=== PATIENT | male | born 1945 | race Caucasian/White ===

== ENCOUNTER 2022-04-13 07:47 | Day surgery (SDC) | payer MEDICARE, BC, SELFPAY ==
[2022-04-08 10:30] VITALS: BMI 25.4
--- NOTE | 2022-04-09 09:35 | MHC.SHP ---
Pre-Procedural Eval Section A Date of Service: 04/09/22 The patient is an INPATIENT: No Changes since office visit: No Cold of Flu in the past 2 weeks, No New Medical Problems, No Changes in Medication and No Patient answered all questions The History & Physical has been completed within 30 days and I have reviewed it.: Yes Section B Chief Complaint: Age-related nuclear cataract, left eye Allergies: Allergies Allergy/AdvReac Type Severity Reaction Status Date / Time No Known Allergies Allergy Verified 04/08/22 10:30 Plan Diagnosis/Plan: Unchanged I have reviewed the history and physical and performed a pertinent physical examination on my patient. No changes have occurred unless specified. Time Spent With Patient Time: Total time managing care of this patient today ____ minutes.
[2022-04-13 08:45] VITALS: BP 144/87; PULSE 68; RESP 16; TEMP 36.3; O2SAT 97
[2022-04-13 08:48] VITALS: BP 144/87; PULSE 68; RESP 16; TEMP 36.3; O2SAT 97
[2022-04-13] MEDS: Tetracaine HCl/PF 0.5% Oph Sol 4 ML DROPS 1 DROP EYE-LEFT (08:53)
[2022-04-13] MEDS: Cyclopentolate 1 % Ophth Sol 2 ML DRPBTL 1 DROP EYE-LEFT ×3 (08:54→09:07)
[2022-04-13] MEDS: Tropicamide 1 % Ophth Sol 3 ML BTL 1 DROP EYE-LEFT ×3 (08:55→09:08)
[2022-04-13] MEDS: Ketorolac Tromethamine 0.5% Op 5 ML DROPS 1 DROP EYE-LEFT ×3 (08:57→09:09)
--- NOTE | 2022-04-13 08:58 | P.CONAN_ITS ---
[facility] Past Medical History Medical History Cataract Elevated cholesterol History of cardioversion History of skin cancer HTN (hypertension) Hx of subdural hematoma PAF (paroxysmal atrial fibrillation) Functional capacity: independent ambulation Family History Family history of problems with anesthesia: No Surgical History Surgical History Hx of colonoscopy Hx of melanoma excision History of Problems with Anesthesia: No Social History Social History Are you a primary palliative care coordinator to a significant other at home: No Do you presently have visiting nurse or other home services: No Patient Tobacco Use Status: Former Tobacco user Quit Date: 1977 Tobacco use type: Cigar Use of substances other than those prescribed or required for medical reasons: No Have you been hit, kicked, punched, or otherwise hurt by someone within the past year? If so, by whom?: No Are you DNR?: No Advance Directives: No Advance Directives Information Provided: Yes Advance Directives on File: No Nutrition Risks: Surgical patient >75years Poor oral hygiene: No Meds Allergies Allergy/AdvReac Type Severity Reaction Status Date / Time No Known Allergies Allergy Verified 04/13/22 08:48 Active Medications: Current Medications Lactated Ringer's (Lr) 500 mls @ 50 mls/hr IV .Q10H JENN Stop: 04/13/22 18:44 Povidone Iodine (Povidone Iodine 5 % Ophth Soln 30 Ml Bottle) 1 appl EYE-LEFT PREOP PRN PRN Reason: Pre-Op Surgical Implant Prophy Home Medications Medication Instructions Recorded Confirmed Last Taken Type apixaban 5 mg tablet (Eliquis) 1 tab PO BID 04/08/22 04/08/22 Unknown History atorvastatin 40 mg tablet 1 tab PO DAILY 04/08/22 04/08/22 Unknown History diltiazem HCl 180 mg 1 cap PO DAILY 04/08/22 04/13/22 04/13/22 05:00 History capsule,extended release 24 hr lisinopril 40 mg tablet 1 tab PO DAILY 04/08/22 04/08/22 Unknown History Exam Exam Date and Time: April 13, 2022 0858 Height,Weight and Vital Signs: Height 5 ft 8.75 in Weight 77.791 kg Last Vital Signs Temp 97.4 F 04/13/22 08:48 Pulse 68 04/13/22 08:48 Resp 16 04/13/22 08:48 BP 144/87 H 04/13/22 08:48 Pulse Ox 97 04/13/22 08:48 O2 Del Method 04/13/22 08:48 Airway Mallampati Class: II TM Dist: >3cm Neck ROM: Full Heart: irreg. Lungs: CTA Assessment and Plan Final Anesthetic Review Family History of Problems with Anesthesia: No History of Problems with Anesthesia: No ASA Class: III Final Preanesthetic Review: Meds/Allgs Chart Reviewed, Consent Obtained/Reviewed and Anes Risks/Benef Reviewed Patient Risk: Low Procedure Risk: Low Anesthetic Plan Anesthetic Plan: MAC: Disposition: Standard PACU
[2022-04-13] MEDS: Phenylephrine HCL 2.5% Oph SoL 2 ML BOTTLE 1 DROP EYE-LEFT ×3 (08:59→09:10)
[2022-04-13] MEDS: Lactated Ringers 500 ML 50 ML IV (09:00)
--- NOTE | 2022-04-13 10:01 | HO.PNOPHT ---
Ophthalmology Procedure Procedure Date of Service: 04/13/22 Ophthalmology Viscoelastic: Arcenio Felipet Dual Pack Pro Ophthalmology Lenses: TECTAI [id number] (12) Procedure Notes: PREOPERATIVE DIAGNOSIS: Decreased visual acuity left eye secondary to cataract POSTOPERATIVE DIAGNOSIS: Same PROCEDURE: Left cataract extraction with intraocular lens insertion SURGEON: Juan Manuel Alonzo M.D. ANESTHESIA: Topical/MAC ESTIMATED BLOOD LOSS: None COMPLICATIONS: None After obtaining informed consent, the patient was brought to the operation room suite and placed in the supine position. After adequate sedation per anesthesia, topical drops of Tetracaine were given to the left eye. The eye was then prepped and draped in the usual sterile fashion. The operating room microscope was then positioned over the operative eye and a lid speculum placed. A paracentesis was created. Viscoelastic was then instilled into the anterior chamber. A three plane incision was then created temporally, utilizing a 2.85 mm keratome. Capsulotomy forceps were then utilized to create a circular tear capsulotomy. Hydrodissection and hydrodelineation were carried out until adequate mobilization of the nucleus occurred. Phacoemulsification was then utilized to remove the dense central nucleus followed by removal of the cortical material utilizing the automated aspiration irrigation unit. Viscoat elastic was instilled into the posterior capsular bag followed by placement of a posterior chamber intraocular lens without difficulty. The residual Viscoat elastic was then removed utilizing the automated IA machine. The wound was check and found to be watertight. The patient tolerated the procedure well and the lid speculum was removed. Intracameral injection of Vigamox 0.1 mL followed by a subtenon injection of Kenalog-40 0.2 mL were administered. The patient will be seen in the a.m.
[2022-04-13 10:23] VITALS: BP 139/81; PULSE 71; RESP 16; TEMP 36.1; O2SAT 99
--- NOTE | 2022-04-13 12:02 | HO.POSTANES ---
Post Anesthesia Evaluation Post Anesthesia Evaluation Vital Signs: Vital Signs Temp Pulse Resp BP Pulse Ox O2 Del Method 04/13/22 10:23 97 F 71 16 139/81 99 Room Air 04/13/22 08:45 97.4 F 68 16 144/87 H 97 Room Air 04/13/22 08:48 97.4 F 68 16 144/87 H 97 Room Air Anesthesia: Monitored Mental Status: Awake Pain Control: Satisfactory Nausea/Vomiting: None Hydration: Adequate Anesthesia-Related Issues: No Anes. Related Issues
== END 2022-04-13 10:32 | disposition home or self-care (01) ==
PROVIDERS: PCP Internal Medicine; Visit Provider Ophthalmology
PROC: (CPT 66985; principal; 2022-04-13 10:00)
DX: H25.12 Age-related nuclear cataract, left eye (principal); H52.4 Presbyopia; H40.013 Open angle with borderline findings, low risk, bilateral; H04.123 Dry eye syndrome of bilateral lacrimal glands; I10 Essential (primary) hypertension; I48.91 Unspecified atrial fibrillation; E78.00 Pure hypercholesterolemia, unspecified; Z79.01 Long term (current) use of anticoagulants; Z79.899 Other long term (current) drug therapy; Z87.891 Personal history of nicotine dependence; Z85.820 Personal history of malignant melanoma of skin
CPT/HCPCS: 66984; J2250; J3301; V2632

== ENCOUNTER 2022-04-20 09:11 | Day surgery (SDC) | payer MEDICARE, BC, SELFPAY ==
[2022-04-08 10:35] VITALS: BMI 25.4
--- NOTE | 2022-04-16 12:57 | MHC.SHP ---
Pre-Procedural Eval Section A Date of Service: 04/16/22 The patient is an INPATIENT: Yes Changes since office visit: No Cold of Flu in the past 2 weeks, No New Medical Problems, No Changes in Medication and No Patient answered all questions The History & Physical has been completed within 30 days and I have reviewed it.: Yes Section B Chief Complaint: Age-related nuclear cataract, right eye Allergies: Allergies Allergy/AdvReac Type Severity Reaction Status Date / Time No Known Allergies Allergy Verified 04/13/22 08:48 Plan Diagnosis/Plan: Unchanged I have reviewed the history and physical and performed a pertinent physical examination on my patient. No changes have occurred unless specified. Time Spent With Patient Time: Total time managing care of this patient today ____ minutes.
--- NOTE | 2022-04-17 11:43 | P.CONAN_ITS ---
Documented by User: Basilia Quintana NP 04/17/22 11:44 HPI - Anesthesia Eval Consult details Narrative: 77yo M for Right Cataract Extraction IOL Insertion PCP cleared Left eye 04/13/22: [facility] 2 PMF[facility] Past Medical History Medical History Cataract Elevated cholesterol History of cardioversion History of skin cancer HTN (hypertension) Hx of subdural hematoma PAF (paroxysmal atrial fibrillation) Family History Family history of problems with anesthesia: No Surgical History Surgical History Hx of colonoscopy Hx of melanoma excision History of Problems with Anesthesia: No Social History Social History Are you a primary caregiver assisted living to a significant other at home: No Do you presently have visiting nurse or other home services: No Patient Tobacco Use Status: Former Tobacco user Quit Date: 1977 Tobacco use type: Cigar Use of substances other than those prescribed or required for medical reasons: No Have you been hit, kicked, punched, or otherwise hurt by someone within the past year? If so, by whom?: No Are you DNR?: No Advance Directives: No Advance Directives Information Provided: Yes Advance Directives on File: No Recently lost weight without trying: No Nutrition Risks: Surgical patient >75years Poor oral hygiene: No Meds Allergies Allergy/AdvReac Type Severity Reaction Status Date / Time No Known Allergies Allergy Verified 04/13/22 08:48 Home Medications Medication Instructions Recorded Confirmed Last Taken Type apixaban 5 mg tablet (Eliquis) 1 tab PO BID 04/08/22 04/20/22 04/19/22 History atorvastatin 40 mg tablet 1 tab PO DAILY 04/08/22 04/20/22 Unknown History diltiazem HCl 180 mg 1 cap PO DAILY 04/08/22 04/20/22 04/20/22 History capsule,extended release 24 hr lisinopril 40 mg tablet 1 tab PO DAILY 04/08/22 04/20/22 Unknown History Exam Exam Date and Time: April 17, 2022 1143 Height,Weight and Vital Signs: Height 5 ft 8.75 in Weight 77.791 kg Assessment and Plan Assessment Anesthesia Assessment: PAT Visit Final Anesthetic Review Family History of Problems with Anesthesia: No History of Problems with Anesthesia: No Documented by User: Maine Covarrubias MD 04/20/22 10:41 PMFSH Past Medical History Medical History Cataract Elevated cholesterol History of cardioversion History of skin cancer HTN (hypertension) Hx of subdural hematoma PAF (paroxysmal atrial fibrillation) Surgical History Surgical History Hx of colonoscopy Hx of melanoma excision Social History Social History Are you a primary caregiver assisted living to a significant other at home: No Do you presently have visiting nurse or other home services: No Patient Tobacco Use Status: Former Tobacco user Quit Date: 1977 Tobacco use type: Cigar Use of substances other than those prescribed or required for medical reasons: No Have you been hit, kicked, punched, or otherwise hurt by someone within the past year? If so, by whom?: No Are you DNR?: No Advance Directives: No Advance Directives Information Provided: Yes Advance Directives on File: No Recently lost weight without trying: No Nutrition Risks: Surgical patient >75years Poor oral hygiene: No Meds Allergies Allergy/AdvReac Type Severity Reaction Status Date / Time No Known Allergies Allergy Verified 04/13/22 08:48 Home Medications Medication Instructions Recorded Confirmed Last Taken Type apixaban 5 mg tablet (Eliquis) 1 tab PO BID 04/08/22 04/20/22 04/19/22 History atorvastatin 40 mg tablet 1 tab PO DAILY 04/08/22 04/20/22 Unknown History diltiazem HCl 180 mg 1 cap PO DAILY 04/08/22 04/20/22 04/20/22 History capsule,extended release 24 hr lisinopril 40 mg tablet 1 tab PO DAILY 04/08/22 04/20/22 Unknown History Exam Height,Weight and Vital Signs: Height 5 ft 8.75 in Weight 77.791 kg Vital Signs Temp Pulse Resp Pulse Ox O2 Del Method 04/20/22 09:29 97.8 F 91 18 97 Room Air Airway Mallampati Class: II TM Dist: >3cm Neck ROM: Full Loose/Missing/Broken Teeth: Yes (Missing teeth back. Denies broken or loose teeth) Heart: Irregularly irregular Lungs: CTAB Assessment and Plan Assessment Anesthesia Assessment: Anesthesia Plan Discussed and Chart Reviewed Final Anesthetic Review NPO: Yes ASA Class: III Final Preanesthetic Review: No Changes in Pt Med Stat, Meds/Allgs Chart Reviewed, Consent Obtained/Reviewed and Anes Risks/Benef Reviewed Patient Risk: Intermediate Procedure Risk: Low Assessment/Block/Sedation in SS: Assess/Block/Sedation-SS Anesthetic Plan Anesthetic Plan: MAC: Disposition: Standard PACU
[2022-04-20 09:29] VITALS: BP 135/66; PULSE 91; RESP 18; TEMP 36.6; O2SAT 97; BMI 24.5
[2022-04-20] MEDS: Tetracaine HCl/PF 0.5% Oph Sol 4 ML DROPS 1 DROP EYE-RIGHT (10:31)
[2022-04-20] MEDS: Lactated Ringers 500 ML 50 ML IV (10:31)
[2022-04-20] MEDS: Tropicamide 1 % Ophth Sol 3 ML BTL 1 DROP EYE-RIGHT ×3 (10:32→10:37)
[2022-04-20] MEDS: Phenylephrine HCL 2.5% Oph SoL 2 ML BOTTLE 1 DROP EYE-RIGHT ×3 (10:32→10:37)
[2022-04-20] MEDS: Cyclopentolate 1 % Ophth Sol 2 ML DRPBTL 1 DROP EYE-RIGHT ×3 (10:32→10:38)
[2022-04-20] MEDS: Ketorolac Tromethamine 0.5% Op 5 ML DROPS 1 DROP EYE-RIGHT ×3 (10:32→10:37)
[2022-04-20 10:44] VITALS: BP 135/66; PULSE 91; RESP 18; TEMP 36.6; O2SAT 97
--- NOTE | 2022-04-20 11:52 | HO.PNOPHT ---
Ophthalmology Procedure Procedure Date of Service: 04/20/22 Ophthalmology Viscoelastic: Arcenio Felipet Dual Pack Pro Ophthalmology Lenses: TECTAI [id number] (12) Procedure Notes: PREOPERATIVE DIAGNOSIS: Decreased visual acuity right eye secondary to cataract POSTOPERATIVE DIAGNOSIS: Same PROCEDURE: Right cataract extraction with intraocular lens insertion SURGEON: Juan Manuel Alonzo M.D. ANESTHESIA: Topical/MAC ESTIMATED BLOOD LOSS: None COMPLICATIONS: None After obtaining informed consent, the patient was brought to the operating room suite and placed in the supine position. After adequate sedation per anesthesia, topical drops of Tetracaine were given to the right eye. The eye was then prepped and draped in the usual sterile fashion. The operating room microscope was then positioned over the operative eye and a lid speculum placed. A paracentesis was created. Viscoelastic was then instilled into the anterior chamber. A three plane incision was then created temporally, utilizing a 2.85 mm keratome. Capsulotomy forceps were then utilized to create a circular tear capsulotomy. Hydrodissection and hydrodelineation were carried out until adequate mobilization of the nucleus occurred. Phacoemulsification was then utilized to remove the dense central nucleus followed by removal of the cortical material utilizing the automated aspiration irrigation unit. Viscoelastic was instilled into the posterior capsular bag followed by placement of a posterior chamber intraocular lens without difficulty. The residual Viscoelastic was then removed utilizing the automated IA machine. The wound was checked and found to be watertight. The patient tolerated the procedure well and the lid speculum was removed. Intracameral injection of Vigamox 0.1 mL followed by a subtenon injection of Kenalog-40 0.2 mL were administered. The patient will be seen in the a.m.
[2022-04-20 12:21] VITALS: BP 106/70; PULSE 78; RESP 16; TEMP 36.3; O2SAT 96
== END 2022-04-20 12:23 | disposition home or self-care (01) ==
PROVIDERS: PCP Internal Medicine; Visit Provider Ophthalmology
PROC: (CPT 66985; principal; 2022-04-20 12:50)
DX: H25.11 Age-related nuclear cataract, right eye (principal); H52.4 Presbyopia; H40.013 Open angle with borderline findings, low risk, bilateral; H04.123 Dry eye syndrome of bilateral lacrimal glands; I10 Essential (primary) hypertension; I48.0 Paroxysmal atrial fibrillation; E78.00 Pure hypercholesterolemia, unspecified; Z79.01 Long term (current) use of anticoagulants; Z79.899 Other long term (current) drug therapy; Z85.820 Personal history of malignant melanoma of skin; Z87.891 Personal history of nicotine dependence
CPT/HCPCS: 66984; J2250; J3010; J3301; V2632